=== PATIENT | female | born 1985 | race Caucasian/White ===

== ENCOUNTER 2018-01-22 10:20 | Inpatient (IN) | payer BC, SELFPAY ==
[2018-01-19 13:16] VITALS: BMI 28.4
[2018-01-22] VITALS (20 sets, daily range): BP systolic 97–126; BP diastolic 47–82; PULSE 46–64; RESP 16–18; TEMP 36.1–36.9; O2SAT 96–99
[2018-01-22 11:05] LABS: Absolute Lymphocyte Count 1.61 X10^3/ul (0.83-4.51); Absolute Neutrophil Count 6.8 X10^3/uL (2.0-7.7); Basophil# 0.01 X10^3/uL; Basophil% 0.1 % (0-1); Eosinophil# 0.05 X10^3/uL; Eosinophils% 0.5 % (0-5); Hemoglobin 14.5 g/dl (12.0-15.0); Lymphocyte # 1.61 X10^3/ul (4.0); Lymphocyte % 17.5 % (19-41); Mean Corp Hgb Conc 35.4 g/gl (32-36); Mean Corpuscular Hgb 34.3 pg (27.0-32.0); Mean Corpuscular Volume 96.9 fL (81-99); Monocyte# 0.64 X10^3/uL; Neutrophil # 6.79 X10^3/uL (2.7-7.7); Neutrophil % 73.9 % (47-70); POSITIVE COUNT NO; POSITIVE DIFFERENTIAL NO; POSITIVE MORPHOLOGY NO; Platelet Count 166 K/mm3 (150-450); RBC Distribution Width CV 13.1 % (11.6-14.6); RBC Distribution Width SD 44.8 fl (35.1-43.9); Red Blood Count 4.23 M/mm3 (4.2-5.4); White Blood Count 9.2 K/mm3 (4.4-11.0)
[2018-01-22] MEDS: Sodium Citrate/Citric Acid 30 ML UDC PO (11:50)
[2018-01-22] MEDS: Lactated Ringers 1,000 ML 50 ML IV (11:50)
[2018-01-22] MEDS: Cefazolin 2 GM in 0.9% Normal Saline 100 ML IV (11:55)
[2018-01-22] MEDS: Oxytocin 30 units/NS 500 ml 30 UNITS/500 ML IV.SOLN 167 UNITS IV (12:17)
--- NOTE | 2018-01-22 12:38 | PCM.OB.CSR ---
Delivery Classification: Scheduled Final ALLISON: 01/26/18 Gestational age: 39 Weeks and 3 Days Indications: term gestation, scheduled repeat c/s Indications for : Repeat Elective Description of Procedure: Surgeon: Dr. Brielle Moreno Polysomnography Technician: TATUM Llamas Procedure performed: Repeat Low Transverse section Anesthesia: Spinal Preoperative diagnosis: Term gestation 39.3 weeks gestation for an elective repeat section Postoperative Diagnosis: same- live male infant Findings: Live male infant born without complication. Clear Amniotic fluid Delayed cord clamping performed. Apgars 9-9, weight 9lb EBL: 600cc Implantable devices: None Operative note: After informed consent was obtained the patient was taken to the operating room she was given spinal anesthesia. He was placed in the supine position. She was then prepped and draped in normal sterile fashion. Once spinal anesthesia was found to be adequate skin incision was made with a scalpel in a Pfannenstiel fashion. It was carried down to the underlying layer of the fascia. Fascia was then incised midline with scapel and extended laterally using curved ford. 2 straight Sandhya's were placed in the superior aspect of the fascial edge and the rectus muscles were dissected off sharply. Attention was then turned to the inferior aspect where again the fascial edge was grasped with 2 straight Pinckney clamps tented up and the rectus muscle dissected off sharply. At this time the rectus muscles were in the midline blunty. Using blunt force the peritoneum was then entered. Metzenbaums were used to take down the rectus muscles inferiorly as well as the peritoneum. At this time the vesicouterine peritoneum was identified. Metzenbaum scissor used to take down filmy bladder adhesions. Uterine incision was made in a low transverse fashion with the scalpel and then entered bluntly. Gentle opposing traction was placed to extend the uterine incision. The membranes were ruptured amniotic fluid clear. Infant's head was then brought to the uterine incision was delivered atraumatically followed by the rest infant's body. At this time delayed cord clamping was performed mouth nose were suctioned. was then handed to the waiting nursery team. The placenta was then removed with gentle traction. The uterus remained in the intra-abdominal cavity. it was cleared of all clots and debris using a moist lap. Ring clamps were placed on the uterine angles. #1 Vicryl suture was used in a running locked fashion for the first layer. A figure of 8 suture was then placed at the right angle for better hemostasis. Uterine incision reevaluated- good hemostasis was appreciated. Sumit was placed. The peritoneum was grasped with Kellys. Peritoneum was reapproximated using #2 Vicryl suture in a running fashion. Muscle was then reapproximated using #2 Vicryl in an interrupted mattress suture fashion. The fascia was then reapproximated using #1 Vicryl in a running fashion. Subcutaneous layer was evaluated and Bovie was used for any small oozing that was noted per #2-0 plain gut suture was then used to reapproximate the subcutaneous layer 4-0 monocryl was used to reapproximate the skin in a subcutaneous fashion. Dry sterile dressing was applied. Instrument lap needle count were correct ?2. Anticipated normal postoperative course for this patient. Amniotic Membrane Rupture Type: Artificial Amniotic Fluid Description: Clear Placenta Disposition: [facility] Drain: Yung to straight drain Cord Entanglement: None Nuchal Cord Compression: Without compression Cord Vessel Description: 3 Vessels Esitmated Blood Loss (ml): 600 Infant Gender: Male (1 minute): 9 (5 minute): 9 Delayed cord clamping: Yes Pre-op Antibiotic Given: Ancef 2 grams IV x1 Pt instructed on risks of surgery: Bleeding, Anesthesia Risks, Infection, Need for Future C-Sections Complications: None - Admit VTE Documentation VTE Present on Admission: Yes VTE Mechan Device Prophylaxis: SCD's VTE Pharm Prophylaxis ordered?: Yes
[2018-01-22] MEDS: Lactated Ringers 1,000 ML 100 ML IV ×2 (13:00→16:00)
[2018-01-22] MEDS: Ketorolac 30 MG/ML Syringe IV ×2 (17:45→23:36)
[2018-01-22] MEDS: Senna/Docusate Sodium 1 Tablet PO (23:36)
[2018-01-23] VITALS (10 sets, daily range): BP systolic 95–123; BP diastolic 53–61; PULSE 60–79; RESP 14–16; TEMP 36.5–37.1; O2SAT 97–100
[2018-01-23] MEDS: Ketorolac 30 MG/ML Syringe IV ×3 (05:39→18:15)
[2018-01-23] MEDS: Enoxaparin 40 MG/0.4 ML Syringe SC (05:40)
[2018-01-23 06:02] LABS: Hematocrit 32.2 % (37-47); Mean Corp Hgb Conc 34.2 g/gl (32-36); Mean Corpuscular Hgb 33.5 pg (27.0-32.0); Mean Corpuscular Volume 98.2 fL (81-99); Mean Platelet Vol. 10.5 fl (6.2-12.0); Platelet Count 129 K/mm3 (150-450); RBC Distribution Width CV 13.3 % (11.6-14.6); RBC Distribution Width SD 47.6 fl (35.1-43.9); Red Blood Count 3.28 M/mm3 (4.2-5.4); White Blood Count 9.9 K/mm3 (4.4-11.0)
[2018-01-23 06:03] LABS: Scan Indicated on CBC? Y/N NO
--- NOTE | 2018-01-23 07:29 | PCM.PN.OB ---
Subjective: pt seen at bedside, doing well. pt reports good pain control. lochia mild. Passing flatus. tolerating regular diet. - Physical Exam General: Alert, Oriented x3 Abdomen: Soft, Non-Distended, - - fundus firm, incision dressing dry and intact Extremities: No Calf Tenderness Vital Signs Temp Pulse Resp BP Pulse Ox 98.3 F 60 16 95/53 L 98 01/23/18 03:45 01/23/18 05:45 01/23/18 05:45 01/23/18 03:45 01/23/18 05:45 Oxygen Delivery Method Room Air Weight: 92.5 kg Body Mass Index (BMI) 28.4 Intake and Output for Last 24 Hours 01/21/18 01/22/18 01/23/18 23:59 23:59 23:59 Intake Total 1500 / 1500 2294 / 2294 Output Total 1600 / 1600 1500 / 1500 Balance -100 / -100 794 / 794 Laboratory Tests Past 24 Hrs 01/22/18 01/22/18 01/23/18 10:50 10:50 05:50 WBC 9.2 9.9 RBC 4.23 3.28 L Hgb 14.5 11.0 L Hct 41.0 32.2 L MCV 96.9 98.2 MCH 34.3 H 33.5 H MCHC 35.4 34.2 RDW 13.1 13.3 RDW Differential 44.8 H 47.6 H Plt Count 166 129 L MPV 11.0 10.5 Immature Gran % (Auto) 1.000 H Neut % (Auto) 73.9 H Lymph % (Auto) 17.5 L Reeves % (Auto) 7.0 Eos % (Auto) 0.5 Baso % (Auto) 0.1 Absolute Neuts (auto) 6.8 Absolute Lymphs (auto) 1.61 Total Counted Not Reportable Blood Type O POSITIVE Antibody Screen NEGATIVE Assessment/Plan POD#1, doing well 1) routine care 2) Pain mgmt 3) ambulation 4) dc ashvin
--- NOTE | 2018-01-23 07:36 | DCINST_ITS ---
Discharge Diet: No Restrictions Discharge Activity: Return to Normal Activity, May Not Drive - for 2 weeks, May not drive while taking narcotic pain medications., May Shower, May Take a Tub Bath - in 7 days. May resume sexual activity in: 4-6 weeks Lifting Restrictions: 20 pounds Additional Activity Instructions:: Nothing in the vagina for 4-6 weeks. You may return to work/school in 6 weeks. Call your doctor if your incision/area has: Continuous Slow Oozing, Sudden Increased Bleeding, Increased Pain/ Swelling, Increased Redness, Foul Smelling Discharge Call your doctor if you observe: Fever of 101 or Higher, Using more than one pad per hour - for 2 hours Suture Line Care: Avoid Pulling/Pushing, Avoid Pinching/Bending Cleanse incision/area with: Keep Dressing Clean & Dry Additional Instructions: If you experience any of the following, contact your healthcare provider. * Bleeding that soaks a pad every hour for 2 hours * Fever 100.4 or higher * Unrelieved incision or abdominal pain * Swelling, redness, discharge or bleeding from your incision or episiotomy site * Your incision begins to separate * Problems urinating (including inability to urinate or burning while urinating) . * Visual changes * Severe headache * Flu-like symptoms * Pain or redness in one of both of your breasts * Pain, warmth, tenderness or swelling in your legs, especially the calf area * Frequent nausea and vomiting * Symptoms of depression or anxiety If you experience any of the following, call 911 or go to the nearest Emergency Room. * Chest pain * Problems breathing * Seizure activity * Partial or complete paralysis of a body part, slurred speech, weakness or drooping of the face, or a sudden inability to walk or hold your balance Allergies/Adverse Reactions: Allergies amoxicillin trihydrate [From Augmentin] Allergy (Verified 01/19/18 13:13) Rash potassium clavulanate [From Augmentin] Allergy (Verified 01/19/18 13:13) Rash Medications to take at Discharge Vits [Prenatabs FA] 1 tablet PO DAILY 01/15/16 Calcium Carb/Vitamin D3/Vit K1 [Viactiv Soft Chew Tablet] 1 each PO BID Enoxaparin [Lovenox] 40 mg SC DAILY@0600 #45 syringe 01/23/18 Naproxen [Naprosyn] 250 - 500 mg PO Q8H PRN PRN #60 tab 01/23/18 Oxycodone HCl/Acetaminophen [Percocet 5/325] 1 tablet PO Q6H PRN PRN 7 Days #28 tablet 01/23/18 Senna/Docusate Sodium [Senokot-S] 1 tab PO DAILY PRN #20 tab 01/23/18 SimETHICONE [Mylicon] 80 mg PO PCHS PRN #30 tab 01/23/18 The following prescriptions were given: Oxycodone HCl/Acetaminophen [Percocet 5/325] 1 tablet PO Q6H PRN PRN 7 Days #28 tablet PRN Reason: Pain Naproxen [Naprosyn] 250 - 500 mg PO Q8H PRN PRN #60 tab PRN Reason: Mild Pain (-01/23) Enoxaparin [Lovenox] 40 mg SC DAILY@0600 #45 syringe Senna/Docusate Sodium [Senokot-S] 1 tab PO DAILY PRN #20 tab PRN Reason: Constipation SimETHICONE [Mylicon] 80 mg PO PCHS PRN #30 tab PRN Reason: Indigestion/stomach pain Follow-Up: Call to make an appointment with your doctor for an incision check in 1-2 weeks. You will also need a 6 week post- follow up appointment. Please Follow Up With: Brielle Moreno MD - Call to make an appointment for an incision check in 1-2 [phone] When: You will need a post- check in 6 weeks. Primary Care Physician: Chadd Benjamin [Primary Care Provider] -
[2018-01-23] MEDS: Acetaminophen 500 MG Tablet 1000 MG PO (11:29)
[2018-01-23] MEDS: 0.9% Saline Lock 10 ML Syringe IV ×2 (12:05→18:15)
[2018-01-24] MEDS: 0.9% Saline Lock 10 ML Syringe IV ×3 (00:02→14:06)
[2018-01-24] MEDS: Ketorolac 30 MG/ML Syringe IV ×3 (00:02→14:05)
[2018-01-24 01:40] VITALS: BP 101/54; PULSE 76; RESP 18; TEMP 36.5; O2SAT 98
[2018-01-24] MEDS: Enoxaparin 40 MG/0.4 ML Syringe SC (06:26)
[2018-01-24 09:00] VITALS: BP 101/54; PULSE 63; RESP 18; TEMP 37.2
[2018-01-24] MEDS: Acetaminophen 500 MG Tablet 1000 MG PO ×2 (09:11→18:22)
--- NOTE | 2018-01-24 10:09 | PCM.PN.OB ---
Subjective: No complaints other than spinal headache. she feels fine when she lays down. - Physical Exam General: Alert, Oriented x3 Abdomen: Soft, Non Tender, Non-Distended - ff mid & below umb; bandage - clean Extremities: No Calf Tenderness Vital Signs Temp Pulse Resp BP Pulse Ox 97.7 F L 76 18 101/54 L 98 01/24/18 01:40 01/24/18 01:40 01/24/18 01:40 01/24/18 01:40 01/24/18 01:40 Oxygen Delivery Method Room Air Weight: 203 lb 14.841 oz Body Mass Index (BMI) 28.4 Intake and Output for Last 24 Hours 01/22/18 01/23/18 01/25/18 23:59 23:59 00:59 Intake Total 1500 / 1500 3386.2 / 3386.2 Output Total 1600 / 1600 4500 / 4500 Balance -100 / -100 -1113.8 / -1113.8 Assessment/Plan 32yo female POD#2 with spinal headache Routine care Spinal headache - caffeine, notify anesthesia
[2018-01-24 14:00] VITALS: BP 102/69; PULSE 63; RESP 18; TEMP 37.1
[2018-01-24] MEDS: Senna/Docusate Sodium 1 Tablet PO (18:22)
[2018-01-24 20:00] VITALS: BP 112/61; PULSE 72; RESP 16; TEMP 36.6; O2SAT 99
[2018-01-25] MEDS: 0.9% Saline Lock 10 ML Syringe IV (01:12)
[2018-01-25] MEDS: Naproxen 250 MG Tablet PO (01:12)
[2018-01-25 01:15] VITALS: BP 107/67; PULSE 55; RESP 18; TEMP 36.4; O2SAT 99
[2018-01-25] MEDS: oxyCODONE 5 MG Tablet PO ×2 (05:58→10:53)
[2018-01-25 08:26] VITALS: BP 109/74; PULSE 55; RESP 16; TEMP 36.6
--- NOTE | 2018-01-25 08:46 | PCM.PN.OB ---
Subjective: pain well controlled, MUNGUIA better yesterday w/ caffeine but not today. Trouble even sitting up to breastfeed. Herman. regular diet - Physical Exam General: Alert, Cooperative, No apparent distress Abdomen: Soft, Non-Distended, Tender - appropriately Skin: Incision - bandage clean, dry and intact Vital Signs Temp Pulse Resp BP Pulse Ox 97.9 F 55 L 16 109/74 99 01/25/18 08:26 01/25/18 08:26 01/25/18 08:26 01/25/18 08:26 01/25/18 01:15 Oxygen Delivery Method Room Air Weight: 92.5 kg Body Mass Index (BMI) 28.4 Intake and Output for Last 24 Hours 01/23/18 01/24/18 01/25/18 22:59 23:59 23:59 Intake Total Output Total Balance Assessment/Plan POD#2 doing well from postop standpoint has spinal MUNGUIA, anesthesia will see about treating this infant and doing well, maybe home later today
[2018-01-25] MEDS: Senna/Docusate Sodium 1 Tablet PO (10:49)
--- NOTE | 2018-01-25 12:03 | PCM.DC.BLA ---
Discharge Summary Date of Admission: 01/22/18 Date of Discharge: 01/25/18 Summary: PT UNDERWENT PLANNED ELECTIVE REPEAT LTCS AT 39+ WEEKS GESTATION WITHOUT COMPLICATION. POST OP PATIENT HAD SPINAL HEADACHE FOR WHICH SHE RECEIVED A BLOOD PATCH ON POD #3. PT STABLE- D/C HOME POD #3 01/25/18
== END 2018-01-25 12:45 | disposition home or self-care (01) | DRG 765 ==
PROVIDERS: Admitting Provider Obstetrics & Gynecology; Family Provider Family Medicine; PCP Family Medicine; Visit Provider Obstetrics & Gynecology
DX: O34.211 Maternal care for low transverse scar from previous cesarean delivery (principal); O99.12 Other diseases of the blood and blood-forming organs and certain disorders involving the immune mechanism complicating childbirth; D68.51 Activated protein C resistance; O99.52 Diseases of the respiratory system complicating childbirth; J45.909 Unspecified asthma, uncomplicated; O36.63X0 Maternal care for excessive fetal growth, third trimester, not applicable or unspecified; O89.4 Spinal and epidural anesthesia-induced headache during the puerperium; Z37.0 Single live birth; Z3A.39 39 weeks gestation of pregnancy
CPT/HCPCS: 85025; 85027; 86850; 86900; 99218; J7120; A4216; G0378; J2405